=== PATIENT | male | born 1980 | race Two or more races ===

== ENCOUNTER 2024-11-05 11:35 | Emergency (ER) | payer SELFPAY ==
[2024-11-05 12:05] VITALS: BP 126/77; PULSE 86; RESP 16; TEMP 98.1; BMI 36.1
== END 2024-11-05 13:05 | disposition home or self-care (01) ==
LOC: JERFT 11:35
DX: Z48.02 Encounter for removal of sutures (principal)
CPT/HCPCS: 99281-25